=== PATIENT | male | born 1935 | race Caucasian/White ===

== ENCOUNTER 2019-12-30 12:03 | Inpatient (IN) | payer MEDICARE, OTHER, MEDICAID ==
[2019-12-30] MEDS ORDERED: Calcium Carbonate 500 MG Tab.Chew PO PRN (15:40)
[2019-12-30] MEDS ORDERED: Acetaminophen 325 MG Tab PO PRN (15:40)
[2019-12-30] MEDS ORDERED: Bisacodyl 5 MG Tab PO PRN (15:40)
[2019-12-30] MEDS ORDERED: traMADol 50 MG Tab PO PRN (15:40)
[2019-12-30] MEDS: Sodium Chloride 0.9% 1,000 ML IV SCH (16:14)
[2019-12-30] MEDS: traMADol 50 MG Tab PO SCH ×2 (16:15→20:06)
[2019-12-30] MEDS: Acetaminophen 650 MG Tab.ER PO SCH ×2 (16:15→20:07)
[2019-12-30] MEDS: Potassium Chloride 20 MEQ Tab.ER PO SCH (20:09)
[2019-12-30] MEDS: Bumetanide 1 MG Tab PO SCH (20:09)
[2019-12-30] MEDS: Gabapentin 100 MG Cap PO SCH (20:10)
[2019-12-30] MEDS: Allopurinol 100 MG Tab PO SCH (20:10)
[2019-12-30] MEDS: Sodium Chloride 1 GM Tab PO SCH (20:10)
[2019-12-30] MEDS: Atenolol 25 MG Tab PO SCH (20:11)
[2019-12-30] MEDS: Formoterol/Mometasone 100-5 MCG 8.8 GM Inhaler IH SCH (20:45)
[2019-12-30] MEDS: Carboxymethylcellulose Sodium 0.5% Ophth Soln 15 ML Bottle EYEBOTH SCH (20:47)
[2019-12-31] MEDS: Acetaminophen 650 MG Tab.ER PO SCH ×4 (07:03→20:28)
[2019-12-31] MEDS: Levothyroxine 25 MCG Tab PO SCH (07:13)
[2019-12-31] MEDS: Gabapentin 100 MG Cap PO SCH ×3 (07:48→20:27)
[2019-12-31] MEDS: traMADol 50 MG Tab PO SCH ×4 (07:48→19:07)
[2019-12-31 08:17] LABS: ANION GAP 11.3 mmol/L (5-15)
[2019-12-31] MEDS: Sodium Chloride 0.9% 1,000 ML IV SCH (08:37)
[2019-12-31] MEDS: Formoterol/Mometasone 100-5 MCG 8.8 GM Inhaler IH SCH ×2 (08:39→20:31)
[2019-12-31] MEDS: Sodium Chloride 1 GM Tab PO SCH ×2 (08:45→20:27)
[2019-12-31] MEDS: Potassium Chloride 20 MEQ Tab.ER PO SCH ×2 (08:45→20:28)
[2019-12-31] MEDS: Finasteride 5 MG Tab PO SCH (08:45)
[2019-12-31] MEDS: Multivitamins with Minerals/Iron/Folic Acid/Lycopene Tab PO SCH (08:45)
[2019-12-31] MEDS: Bumetanide 1 MG Tab PO SCH ×2 (08:45→20:26)
[2019-12-31] MEDS: Doxazosin 2 MG Tab PO SCH (08:45)
[2019-12-31] MEDS: Furosemide 40 MG Tab PO SCH (08:46)
[2019-12-31] MEDS: Folic Acid 1 MG Tab PO SCH (08:46)
[2019-12-31] MEDS: Carboxymethylcellulose Sodium 0.5% Ophth Soln 15 ML Bottle EYEBOTH SCH ×2 (08:47→20:32)
[2019-12-31] MEDS: Spironolactone 25 MG Tab PO SCH (08:49)
[2019-12-31] MEDS ORDERED: Non-Formulary Medication 1 Each (Cyanocobalamin (Vitamin B12) [Vitamin B12] 100 MCG) PO SCH (09:00)
--- NOTE | 2019-12-31 10:00 | PCM.PN ---
- General Info Date of Service: 12/31/19 Functional Status: Reports: Pain Controlled, Tolerating Diet, Urinating. Denies: Ambulating, Incentive Spirometry - Review of Systems General: Reports: No Symptoms HEENT: Reports: No Symptoms Pulmonary: Reports: No Symptoms Cardiovascular: Reports: No Symptoms Gastrointestinal: Denies: Abdominal Pain, Constipation, Diarrhea, Nausea Genitourinary: Reports: No Symptoms Musculoskeletal: Reports: Leg Pain, Joint Swelling Skin: Reports: Rash, Other (Improving in erythremia right lower extremity) Neurological: Reports: Difficulty Walking - Patient Data Vitals - Most Recent: Last Vital Signs Temp 99.9 F 12/31/19 07:00 Pulse 62 12/31/19 07:00 Resp 20 12/31/19 07:00 BP 115/49 L 12/31/19 08:45 Pulse Ox 96 12/31/19 07:00 Weight - Most Recent: 212 lb 14.4 oz I&O - Last 24 Hours: Intake & Output 12/30/19 12/31/19 12/31/19 22:59 06:59 14:59 Intake Total 300 300 Balance 300 300 Lab Results Last 24 Hours: Laboratory Results - last 24 hr 12/30/19 12/31/19 12/31/19 Range/Units 15:50 07:18 07:18 WBC 7.84 (5.00-10.00) 10^3/uL RBC 3.75 L (4.50-6.00) 10^6/uL Hgb 12.1 L (13.0-17.0) g/dL Hct 36.7 L (40.0-52.0) % MCV 97.9 H D (82.0-92.0) fL MCH 32.3 H (27.0-31.0) pg MCHC 33.0 (32.0-36.0) g/dL RDW 13.7 (11.5-14.5) % Plt Count 70 L (150-400) 10^3/uL MPV 10.0 (7.4-10.4) fL Immature Gran % (Auto) 1.7 (0.0-5.0) % Neut % (Auto) 88.1 H (50.0-70.0) % Lymph % (Auto) 5.9 L (20.0-40.0) % Craig % (Auto) 4.1 (2.0-8.0) % Eos % (Auto) 0.1 L (1.0-3.0) % Baso % (Auto) 0.1 (0.0-1.0) % Neut # (Auto) 6.91 (2.50-7.00) 10^3/uL Lymph # (Auto) 0.46 L (1.00-4.00) 10^3/uL Craig # (Auto) 0.32 (0.10-0.80) 10^3/uL Eos # (Auto) 0.01 L (0.10-0.30) 10^3/uL Baso # (Auto) 0.01 (0.00-0.10) 10^3/uL Immature Gran # (Auto) 0.13 (0.00-0.50) 10^3/uL Sodium 131 L (136-145) mmol/L Potassium 4.3 (3.3-5.3) mmol/L Chloride 95 L (98-115) mmol/L Carbon Dioxide 29.0 (21.0-32.0) mmol/L Anion Gap 11.3 (5-15) mmol/L BUN 39 H (6-25) mg/dL Creatinine 1.31 H (0.51-1.17) mg/dL Est Cr Clr Drug Dosing 39.25 mL/min Estimated GFR (MDRD) 52 mL/min Glucose 112 H (75 - 99) mg/dL Lactic Acid 1.6 (0.4-2.0) mmol/L Calcium 7.7 L (8.7-10.3) mg/dL Med Orders - Current: Current Medications Acetaminophen (Tylenol) 650 mg PO Q6HR PRN PRN Reason: Pain Acetaminophen (Tylenol Arthritis Pain) 650 mg PO QID@05,11,16,20 [facility] Last Admin: 12/31/19 07:03 Dose: 650 mg Documented by: Allopurinol (Zyloprim) 200 mg PO BEDTIME [facility] Last Admin: 12/30/19 20:10 Dose: 200 mg Documented by: Artificial Tears (Refresh Tears 0.5%) 0 ml EYEBOTH BID [facility] Last Admin: 12/31/19 08:47 Dose: 2 drop Documented by: Atenolol (Tenormin) 25 mg PO BEDTIME [facility] Last Admin: 12/30/19 20:11 Dose: 25 mg Documented by: Bisacodyl (Dulcolax) 5 mg PO DAILY PRN PRN Reason: Constipation Bumetanide (Bumex) 0.5 mg PO BID [facility] Last Admin: 12/31/19 08:45 Dose: 0.5 mg Documented by: Calcium Carbonate/Glycine (Tums) 500 mg PO QID PRN PRN Reason: Indigestion Calcium Carbonate/Glycine (Tums) 500 mg PO SA [facility] Doxazosin Mesylate (Cardura) 2 mg PO DAILY [facility] Last Admin: 12/31/19 08:45 Dose: 2 mg Documented by: Finasteride (Proscar) 5 mg PO DAILY [facility] Last Admin: 12/31/19 08:45 Dose: 5 mg Documented by: Folic Acid (Folic Acid) 1 mg PO DAILY [facility] Last Admin: 12/31/19 08:46 Dose: 1 mg Documented by: Furosemide (Lasix) 40 mg PO DAILY [facility] Last Admin: 12/31/19 08:46 Dose: 40 mg Documented by: Gabapentin (Neurontin) 100 mg PO BID@0800,1200 [facility] Last Admin: 12/31/19 07:48 Dose: 100 mg Documented by: Gabapentin (Neurontin) 200 mg PO BEDTIME [facility] Last Admin: 12/30/19 20:10 Dose: 200 mg Documented by: Vancomycin HCl 1.5 gm/ Sodium (Chloride) 250 mls @ 100 mls/hr IV Q24H [facility] Sodium Chloride (Normal Saline) 1,000 mls @ 75 mls/hr IV ASDIRECTED [facility] Last Admin: 12/31/19 08:37 Dose: 75 mls/hr Documented by: Levothyroxine Sodium (Levothyroxine) 25 mcg PO ACBREAKFAST [facility] Last Admin: 12/31/19 07:13 Dose: 25 mcg Documented by: Mometasone Furoate/Formoterol Fumar (Dulera 100-5 Mcg) 2 puff IH BID [facility] Last Admin: 12/31/19 08:39 Dose: 2 puff Documented by: Multivitamins/Minerals (Centrum) 1 tab PO DAILY [facility] Last Admin: 12/31/19 08:45 Dose: 1 tab Documented by: Potassium Chloride (Klor-Con M20) 20 meq PO BID [facility] Last Admin: 12/31/19 08:45 Dose: 20 meq Documented by: Senna/Docusate Sodium (Senna Plus) 1 tab PO DAILY [facility] Last Admin: 12/31/19 08:46 Dose: 1 tab Documented by: Sodium Chloride (Saline Flush) 10 ml FLUSH Q8HR PRN PRN Reason: keep vein open Sodium Chloride (Sodium Chloride) 1 gm PO BID [facility] Last Admin: 12/31/19 08:45 Dose: 1 gm Documented by: Spironolactone (Aldactone) 25 mg PO DAILY [facility] Last Admin: 12/31/19 08:49 Dose: 25 mg Documented by: Tramadol HCl (Ultram) 50 mg PO BEDTIME PRN PRN Reason: Pain Tramadol HCl (Ultram) 50 mg PO QID@08,11,16,19 [facility] Last Admin: 12/31/19 07:48 Dose: 50 mg Documented by: Vancomycin HCl (Pharmacy To Dose - Vancomycin) 1 dose .XX ASDIRECTED [facility] Discontinued Medications Vancomycin HCl 2 gm/ Sodium (Chloride) 250 mls @ 100 mls/hr IV ONETIME ONE Stop: 12/30/19 17:04 Last Admin: 12/30/19 16:14 Dose: 100 mls/hr Documented by: Non-Formulary Medication (Cyanocobalamin (Vitamin B12) [Vitamin B12]) 100 mcg PO DAILY [facility] - Exam Quality Assessment: No: Supplemental Oxygen General: Alert, Oriented, Cooperative Neck: Supple Lungs: Clear to Auscultation, Normal Respiratory Effort Cardiovascular: Regular Rate, Regular Rhythm GI/Abdominal Exam: Other. No: Distended (Male) Exam: Deferred Back Exam: No: CVA Tenderness (L), CVA Tenderness (R) Extremities: No Pedal Edema, Redness. No: Increased Warmth Sepsis Event Note - Evaluation Sepsis Screening Result: No Definite Risk - Focused Exam Vital Signs: Vital Signs Temp Pulse Resp BP BP Pulse Ox 12/31/19 08:45 115/49 L 12/31/19 07:00 99.9 F 62 20 115/49 L 96 12/31/19 03:00 97 F 74 20 121/61 95 12/30/19 23:00 98.1 F 84 20 113/60 93 L - Problem List Review Problem List Initiated/Reviewed/Updated: Yes - Plan Plan:: History Summary 84yr male was admitted into inpatient status due to right lower extremity cellulitis with foot ulcers. She is a resident of a local LTC and was evaluated and admitted by Lisette Dumont NP due to is strongly suspected cellulitis of his right lower extremity. Patient stated he sustained a fall recently when his feet came out from underneath him subsequently noticed his right foot becoming more painful red edematous however he had no fever. Pertinent clinical findings: Right lower extremity erythematous, warm to touch and painful with blister. WBC 9.3 with 91% neutrophilia SBP and HR 112. No Confusion. Exam: Right foot ~ 2 x 1.5 cm ulceration present with fat layer exposed to right lateral/plantar forefoot. Large fluid filled blister at base of 5th toe. Open sanguineous draining blister to great toe. Stasis dermatitis to LLE. Right foot: Approximate 2 x 1.5 cm ulceration present with fat layer exposed to right lateral/plantar forefoot. Large fluid filled blister at base of 5th toe. Open sanguineous draining blister to great toe. Stasis dermatitis to LLE. Primary hospital problems --Cellulitis, RLL, improving in demarcation and depth --Diabetic ulcer of right midfoot --Renal sufficiency, acute, BUN/creat ratio 30:1, suspect comined prerenal vancomycin induced, continue isotonic fluids --Tachycardia, resolved, Chronic stable conditions: -Stasis dermatitis to LLE. no open wounds -T2DM, diet controlled, -Chronic diastolic heart failure: On lasix 40 mg daily, bumex 0.5 mg BID, spironolactone 25 mg daily. -Venous insufficiency. -Hyponatremia: On sodium chloride 1 gm BID. -Thrombocytopenia. Disposition/overall plan --Patient meets ongoing inpatient qualification criteria due to the need for IV vancomycin close renal monitoring. --Change activity to [facility]--keep RLE elevated--toes to nose. --Discontinue telemetry --Continue isotonic fluids --Will require surgical sharps debridement after initial infection is resolved, place on scheduled
[2019-12-31] MEDS ORDERED: Furosemide 40 MG/4 ML VIAL IVPUSH ONE (18:30)
[2019-12-31] MEDS: Sodium Chloride 0.9% 10 ML Syringe FLUSH PRN (19:12)
[2019-12-31] MEDS: Allopurinol 100 MG Tab PO SCH (20:26)
[2019-12-31] MEDS: Atenolol 25 MG Tab PO SCH (20:30)
[2020-01-01] MEDS: Acetaminophen 650 MG Tab.ER PO SCH ×4 (06:00→22:24)
[2020-01-01] MEDS: Levothyroxine 25 MCG Tab PO SCH ×2 (06:00→07:18)
[2020-01-01] MEDS: Gabapentin 100 MG Cap PO SCH ×3 (08:03→22:24)
[2020-01-01] MEDS: Finasteride 5 MG Tab PO SCH (08:04)
[2020-01-01] MEDS: Furosemide 40 MG Tab PO SCH (08:04)
[2020-01-01] MEDS: Potassium Chloride 20 MEQ Tab.ER PO SCH ×2 (08:04→22:24)
[2020-01-01] MEDS: Bumetanide 1 MG Tab PO SCH ×2 (08:04→22:26)
[2020-01-01] MEDS: traMADol 50 MG Tab PO SCH ×4 (08:04→22:29)
[2020-01-01] MEDS: Spironolactone 25 MG Tab PO SCH (08:05)
[2020-01-01] MEDS: Multivitamins with Minerals/Iron/Folic Acid/Lycopene Tab PO SCH (08:05)
[2020-01-01] MEDS: Sodium Chloride 1 GM Tab PO SCH ×2 (08:05→22:24)
[2020-01-01] MEDS: Folic Acid 1 MG Tab PO SCH (08:05)
[2020-01-01] MEDS: Doxazosin 2 MG Tab PO SCH (08:10)
[2020-01-01] MEDS: Formoterol/Mometasone 100-5 MCG 8.8 GM Inhaler IH SCH ×2 (09:03→22:31)
[2020-01-01 09:09] LABS: HEMOGLOBIN A1C 6.1 % (4.3-5.7)
--- NOTE | 2020-01-01 10:17 | PCM.PN ---
- General Info Date of Service: 01/01/20 Functional Status: Reports: Pain Controlled, Tolerating Diet - Review of Systems General: Denies: Fever, Weakness HEENT: Reports: No Symptoms Pulmonary: Reports: No Symptoms Cardiovascular: Reports: No Symptoms Gastrointestinal: Reports: No Symptoms Skin: Reports: Bruising, Rash Neurological: Reports: Difficulty Walking. Denies: Confusion Psychiatric: Denies: Confusion - Patient Data Vitals - Most Recent: Last Vital Signs Temp 96.8 F L 01/01/20 07:00 Pulse 76 01/01/20 09:03 Resp 24 H 01/01/20 07:00 BP 116/55 L 01/01/20 08:10 Pulse Ox 96 01/01/20 09:18 Weight - Most Recent: 212 lb 14.4 oz I&O - Last 24 Hours: Intake & Output 12/31/19 01/01/20 01/01/20 22:59 06:59 14:59 Intake Total 779 410 Balance 779 410 Lab Results Last 24 Hours: Laboratory Results - last 24 hr 01/01/20 Range/Units 07:23 Hemoglobin A1c 6.1 H (4.3-5.7) % Hemant Results Last 24 Hours: Microbiology 12/30/19 13:45 Gram Stain - Final Wound - Foot, Right 12/30/19 13:40 Gram Stain - Final Wound - Toe, Big (Great), Right 12/30/19 15:50 Aerobic Blood Culture - Preliminary Blood - Venous - Lab Draw NO GROWTH AFTER 1 DAY Anaerobic Blood Culture - Final 12/30/19 15:40 Aerobic Blood Culture - Preliminary Blood - Venous NO GROWTH AFTER 1 DAY Anaerobic Blood Culture - Final Med Orders - Current: Current Medications Acetaminophen (Tylenol) 650 mg PO Q6HR PRN PRN Reason: Pain Acetaminophen (Tylenol Arthritis Pain) 650 mg PO QID@05,11,16,20 [facility] Last Admin: 01/01/20 06:00 Dose: 650 mg Documented by: Allopurinol (Zyloprim) 200 mg PO BEDTIME [facility] Last Admin: 12/31/19 20:26 Dose: 200 mg Documented by: Artificial Tears (Refresh Tears 0.5%) 0 ml EYEBOTH BID [facility] Last Admin: 12/31/19 20:32 Dose: 2 drop Documented by: Atenolol (Tenormin) 25 mg PO BEDTIME [facility] Last Admin: 12/31/19 20:30 Dose: 25 mg Documented by: Bisacodyl (Dulcolax) 5 mg PO DAILY PRN PRN Reason: Constipation Last Admin: 01/01/20 08:04 Dose: 5 mg Documented by: Bumetanide (Bumex) 0.5 mg PO BID [facility] Last Admin: 01/01/20 08:04 Dose: 0.5 mg Documented by: Calcium Carbonate/Glycine (Tums) 500 mg PO QID PRN PRN Reason: Indigestion Calcium Carbonate/Glycine (Tums) 500 mg PO SA [facility] Doxazosin Mesylate (Cardura) 2 mg PO DAILY [facility] Last Admin: 01/01/20 08:10 Dose: 2 mg Documented by: Finasteride (Proscar) 5 mg PO DAILY [facility] Last Admin: 01/01/20 08:04 Dose: 5 mg Documented by: Folic Acid (Folic Acid) 1 mg PO DAILY [facility] Last Admin: 01/01/20 08:05 Dose: 1 mg Documented by: Furosemide (Lasix) 40 mg PO DAILY [facility] Last Admin: 01/01/20 08:04 Dose: 40 mg Documented by: Gabapentin (Neurontin) 100 mg PO BID@0800,1200 [facility] Last Admin: 01/01/20 08:03 Dose: 100 mg Documented by: Gabapentin (Neurontin) 200 mg PO BEDTIME [facility] Last Admin: 12/31/19 20:27 Dose: 200 mg Documented by: Vancomycin HCl 1.5 gm/ Sodium (Chloride) 250 mls @ 100 mls/hr IV Q24H [facility] Last Admin: 12/31/19 15:37 Dose: 100 mls/hr Documented by: Levothyroxine Sodium (Levothyroxine) 25 mcg PO ACBREAKFAST [facility] Last Admin: 01/01/20 07:18 Dose: Not Given Documented by: Mometasone Furoate/Formoterol Fumar (Dulera 100-5 Mcg) 2 puff IH BID [facility] Last Admin: 01/01/20 09:03 Dose: 2 puff Documented by: Multivitamins/Minerals (Centrum) 1 tab PO DAILY [facility] Last Admin: 01/01/20 08:05 Dose: 1 tab Documented by: Potassium Chloride (Klor-Con M20) 20 meq PO BID [facility] Last Admin: 01/01/20 08:04 Dose: 20 meq Documented by: Senna/Docusate Sodium (Senna Plus) 1 tab PO DAILY [facility] Last Admin: 01/01/20 08:04 Dose: 1 tab Documented by: Sodium Chloride (Saline Flush) 10 ml FLUSH Q8HR PRN PRN Reason: keep vein open Last Admin: 12/31/19 19:12 Dose: 10 ml Documented by: Sodium Chloride (Sodium Chloride) 1 gm PO BID [facility] Last Admin: 01/01/20 08:05 Dose: 1 gm Documented by: Spironolactone (Aldactone) 25 mg PO DAILY [facility] Last Admin: 01/01/20 08:05 Dose: 25 mg Documented by: Tramadol HCl (Ultram) 50 mg PO BEDTIME PRN PRN Reason: Pain Tramadol HCl (Ultram) 50 mg PO QID@08,,16,19 [facility] Last Admin: 01/01/20 08:04 Dose: 50 mg Documented by: Vancomycin HCl (Pharmacy To Dose - Vancomycin) 1 dose .XX ASDIRECTED [facility] Discontinued Medications Furosemide (Lasix) 20 mg IVPUSH NOW ONE Stop: 12/31/19 18:31 Last Admin: 12/31/19 19:08 Dose: 20 mg Documented by: Vancomycin HCl 2 gm/ Sodium (Chloride) 250 mls @ 100 mls/hr IV ONETIME ONE Stop: 12/30/19 17:04 Last Admin: 12/30/19 16:14 Dose: 100 mls/hr Documented by: Sodium Chloride (Normal Saline) 1,000 mls @ 75 mls/hr IV ASDIRECTED [facility] Last Admin: 12/31/19 08:37 Dose: 75 mls/hr Documented by: Non-Formulary Medication (Cyanocobalamin (Vitamin B12) [Vitamin B12]) 100 mcg PO DAILY [facility] - Exam General: Alert, Oriented, Cooperative Neck: Supple Lungs: Clear to Auscultation, Normal Respiratory Effort Cardiovascular: Regular Rate, Regular Rhythm GI/Abdominal Exam: Soft. No: Distended (Male) Exam: Deferred Back Exam: No: CVA Tenderness (L), CVA Tenderness (R) Extremities: Redness (Right foot: Approximate 2 x 1.5 cm ulceration present with fat layer exposed to right lateral/plantar forefoot. Large fluid filled blister at base of 5th toe. Open sanguineous draining blister to great toe. ). No: Leg Pain Skin: Other (Right foot: Approximate 2 x 1.5 cm ulceration present with fat layer exposed to right lateral/plantar forefoot. Large fluid filled blister at base of 5th toe. Open sanguineous draining blister to great toe. ) Wound/Incisions: Other (Right foot: Approximate 2 x 1.5 cm ulceration present with fat layer exposed to right lateral/plantar forefoot. Large fluid filled blister at base of 5th toe. Open sanguineous draining blister to great toe. ) Psy/Mental Status: Alert, Normal Affect, Normal Mood Sepsis Event Note - Evaluation Sepsis Screening Result: No Definite Risk - Focused Exam Vital Signs: Vital Signs Temp Pulse Resp BP BP Pulse Ox Pulse Ox 01/01/20 09:18 96 01/01/20 09:03 76 01/01/20 08:10 116/55 L 01/01/20 07:00 96.8 F L 78 24 H 124/57 L 93 L 01/01/20 03:00 98.9 F 85 20 105/57 L 92 L 12/31/19 22:45 98.7 F 87 20 125/66 92 L - Problem List Review Problem List Initiated/Reviewed/Updated: Yes - My Orders Last 24 Hours: My Active Orders 12/31/19 10:10 Bedrest Bathroom Privileges [RC] ASDIRECTED 01/01/20 07:23 BASIC METABOLIC PANEL,POC [POC] Routine - Plan Plan:: History Summary 84yr male was admitted into inpatient status due to right lower extremity cellulitis with foot ulcers. She is a resident of a local LTC and was evaluated and admitted by Lisette Dumont NP due to is strongly suspected cellulitis of his right lower extremity. Patient stated he sustained a fall recently when his feet came out from underneath him subsequently noticed his right foot becoming more painful red edematous however he had no fever. Pertinent clinical findings: Right lower extremity erythematous, warm to touch and painful with blister. WBC 9.3 with 91% neutrophilia SBP and HR 112. No Confusion. Exam: Right foot ~ 2 x 1.5 cm ulceration present with fat layer exposed to right lateral/plantar forefoot. Large fluid filled blister at base of 5th toe. Open sanguineous draining blister to great toe. Stasis dermatitis to LLE. Right foot: Approximate 2 x 1.5 cm ulceration present with fat layer exposed to right lateral/plantar forefoot. Large fluid filled blister at base of 5th toe. Open sanguineous draining blister to great toe. Stasis dermatitis to LLE. Hospital course to date; patient doing well with less edema, decrease in redness and decreasing warmth to his right lower extremity and foot, with drainage base of fifth toe. No fever, no pain, did sustain a fall while in the bathroom landed on buttocks no injury. Anaerobic blood culture positive for gram- positive cocci Primary hospital problems --Bacteremia, Anaerobic blood culture positive for gram-positive, Vancomycin --Cellulitis, RLL, improving in demarcation and depth --Diabetic ulcer of right midfoot --Renal sufficiency, acute, BUN/creat ratio 30:1, suspect combined prerenal vancomycin induced, --Tachycardia, resolved, Chronic stable conditions: -Stasis dermatitis to LLE. no open wounds -T2DM, diet controlled, -Chronic diastolic heart failure: On lasix 40 mg daily, bumex 0.5 mg BID, spironolactone 25 mg daily. -Venous insufficiency. -Hyponatremia: On sodium chloride 1 gm BID. -Thrombocytopenia. Disposition/overall plan --Patient meets ongoing inpatient qualification criteria due to the need for IV vancomycin close renal monitoring. --[facility]--keep RLE elevated--toes to nose --Will require surgical sharps debridement after initial infection is resolved, place on scheduled
[2020-01-01] MEDS: Carboxymethylcellulose Sodium 0.5% Ophth Soln 15 ML Bottle EYEBOTH SCH ×2 (11:44→22:31)
[2020-01-01] MEDS: Sodium Chloride 0.9% 10 ML Syringe FLUSH PRN (14:43)
[2020-01-01] MEDS: Atenolol 25 MG Tab PO SCH (22:24)
[2020-01-01] MEDS: Allopurinol 100 MG Tab PO SCH (22:26)
[2020-01-02] MEDS: Acetaminophen 650 MG Tab.ER PO SCH ×4 (05:51→19:01)
[2020-01-02] MEDS: Levothyroxine 25 MCG Tab PO SCH ×2 (05:52→07:46)
[2020-01-02] MEDS: Gabapentin 100 MG Cap PO SCH ×3 (07:51→20:20)
[2020-01-02] MEDS: traMADol 50 MG Tab PO SCH ×4 (07:55→19:02)
[2020-01-02] MEDS: Doxazosin 2 MG Tab PO SCH (08:25)
[2020-01-02] MEDS: Spironolactone 25 MG Tab PO SCH (08:31)
[2020-01-02] MEDS: Potassium Chloride 20 MEQ Tab.ER PO SCH ×2 (08:31→20:20)
[2020-01-02] MEDS: Sodium Chloride 1 GM Tab PO SCH ×2 (08:31→20:19)
[2020-01-02] MEDS: Multivitamins with Minerals/Iron/Folic Acid/Lycopene Tab PO SCH (08:31)
[2020-01-02] MEDS: Furosemide 40 MG Tab PO SCH (08:31)
[2020-01-02] MEDS: Finasteride 5 MG Tab PO SCH (08:31)
[2020-01-02] MEDS: Bumetanide 1 MG Tab PO SCH ×2 (08:31→20:20)
[2020-01-02] MEDS: Folic Acid 1 MG Tab PO SCH (08:31)
[2020-01-02] MEDS: Formoterol/Mometasone 100-5 MCG 8.8 GM Inhaler IH SCH ×2 (08:34→20:24)
[2020-01-02] MEDS: Carboxymethylcellulose Sodium 0.5% Ophth Soln 15 ML Bottle EYEBOTH SCH ×2 (08:34→20:23)
[2020-01-02 08:57] LABS: ANION GAP 14.9 mmol/L (5-15); CHLORIDE,CL 97 mmol/L (98-115); SODIUM,NA 135 mmol/L (136-145)
--- NOTE | 2020-01-02 11:31 | PCM.PN ---
- General Info Date of Service: 01/02/20 Functional Status: Reports: Pain Controlled, Tolerating Diet, Urinating. Denies: Ambulating, New Symptoms - Review of Systems General: Denies: Fever HEENT: Reports: No Symptoms Pulmonary: Reports: No Symptoms Cardiovascular: Reports: No Symptoms Gastrointestinal: Reports: No Symptoms Genitourinary: Denies: Dysuria - Patient Data Vitals - Most Recent: Last Vital Signs Temp 98.1 F 01/02/20 06:37 Pulse 68 01/02/20 06:37 Resp 20 01/02/20 06:37 BP 127/57 L 01/02/20 08:25 Pulse Ox 95 01/02/20 06:37 Weight - Most Recent: 212 lb 14.4 oz I&O - Last 24 Hours: Intake & Output 01/01/20 01/02/20 01/02/20 22:59 06:59 14:59 Intake Total 500 300 Balance 500 300 Lab Results Last 24 Hours: Laboratory Results - last 24 hr 01/02/20 01/02/20 Range/Units 07:56 07:56 WBC 6.42 (5.00-10.00) 10^3/uL RBC 3.69 L (4.50-6.00) 10^6/uL Hgb 11.8 L (13.0-17.0) g/dL Hct 35.8 L (40.0-52.0) % MCV 97.0 H (82.0-92.0) fL MCH 32.0 H (27.0-31.0) pg MCHC 33.0 (32.0-36.0) g/dL RDW 13.7 (11.5-14.5) % Plt Count 85 L (150-400) 10^3/uL MPV 10.5 H (7.4-10.4) fL Immature Gran % (Auto) 4.7 (0.0-5.0) % Neut % (Auto) 84.1 H (50.0-70.0) % Lymph % (Auto) 7.5 L (20.0-40.0) % [place] % (Auto) 3.0 (2.0-8.0) % Eos % (Auto) 0.5 L (1.0-3.0) % Baso % (Auto) 0.2 (0.0-1.0) % Neut # (Auto) 5.41 (2.50-7.00) 10^3/uL Lymph # (Auto) 0.48 L (1.00-4.00) 10^3/uL [place] # (Auto) 0.19 (0.10-0.80) 10^3/uL Eos # (Auto) 0.03 L (0.10-0.30) 10^3/uL Baso # (Auto) 0.01 (0.00-0.10) 10^3/uL Immature Gran # (Auto) 0.30 (0.00-0.50) 10^3/uL Sodium 135 L (136-145) mmol/L Potassium 3.9 (3.3-5.3) mmol/L Chloride 97 L (98-115) mmol/L Carbon Dioxide 27.0 (21.0-32.0) mmol/L Anion Gap 14.9 (5-15) mmol/L BUN 35 H (6-25) mg/dL Creatinine 0.98 (0.51-1.17) mg/dL Est Cr Clr Drug Dosing 52.46 mL/min Estimated GFR (MDRD) > 60 mL/min Glucose 126 H (75 - 99) mg/dL Calcium 7.6 L (8.7-10.3) mg/dL Hemant Results Last 24 Hours: Microbiology 12/30/19 15:50 Bacterial Identification - Preliminary Blood - Venous Staphylococcus Aureus 12/30/19 15:40 Bacterial Identification - Preliminary Blood - Venous - Lab Draw Staphylococcus Aureus 12/30/19 15:50 Aerobic Blood Culture - Preliminary Blood - Venous - Lab Draw NO GROWTH AFTER 2 DAYS Anaerobic Blood Culture - Final 12/30/19 15:40 Aerobic Blood Culture - Preliminary Blood - Venous NO GROWTH AFTER 2 DAYS Anaerobic Blood Culture - Final 12/30/19 13:45 Miscellaneous Reference Culture - Preliminary Wound - Foot, Right Staphylococcus Aureus Gram Stain - Final 12/30/19 13:40 Miscellaneous Reference Culture - Preliminary Wound - Toe, Big (Great), Right Staphylococcus Aureus Gram Stain - Final Med Orders - Current: Current Medications Acetaminophen (Tylenol) 650 mg PO Q6HR PRN PRN Reason: Pain Acetaminophen (Tylenol Arthritis Pain) 650 mg PO QID@05,11,16,20 [facility] Last Admin: 01/02/20 11:10 Dose: 650 mg Documented by: Allopurinol (Zyloprim) 200 mg PO BEDTIME [facility] Last Admin: 01/01/20 22:26 Dose: 200 mg Documented by: Artificial Tears (Refresh Tears 0.5%) 0 ml EYEBOTH BID [facility] Last Admin: 01/02/20 08:34 Dose: 2 drop Documented by: Atenolol (Tenormin) 25 mg PO BEDTIME [facility] Last Admin: 01/01/20 22:24 Dose: 25 mg Documented by: Bisacodyl (Dulcolax) 5 mg PO DAILY PRN PRN Reason: Constipation Last Admin: 01/01/20 08:04 Dose: 5 mg Documented by: Bumetanide (Bumex) 0.5 mg PO BID [facility] Last Admin: 01/02/20 08:31 Dose: 0.5 mg Documented by: Calcium Carbonate/Glycine (Tums) 500 mg PO QID PRN PRN Reason: Indigestion Calcium Carbonate/Glycine (Tums) 500 mg PO SA [facility] Doxazosin Mesylate (Cardura) 2 mg PO DAILY [facility] Last Admin: 01/02/20 08:25 Dose: 2 mg Documented by: Finasteride (Proscar) 5 mg PO DAILY [facility] Last Admin: 01/02/20 08:31 Dose: 5 mg Documented by: Folic Acid (Folic Acid) 1 mg PO DAILY [facility] Last Admin: 01/02/20 08:31 Dose: 1 mg Documented by: Furosemide (Lasix) 40 mg PO DAILY [facility] Last Admin: 01/02/20 08:31 Dose: 40 mg Documented by: Gabapentin (Neurontin) 100 mg PO BID@0800,1200 [facility] Last Admin: 01/02/20 11:11 Dose: 100 mg Documented by: Gabapentin (Neurontin) 200 mg PO BEDTIME [facility] Last Admin: 01/01/20 22:24 Dose: 200 mg Documented by: Vancomycin HCl 1.5 gm/ Sodium (Chloride) 250 mls @ 100 mls/hr IV Q24H [facility] Last Admin: 01/01/20 14:43 Dose: 100 mls/hr Documented by: Levothyroxine Sodium (Levothyroxine) 25 mcg PO ACBREAKFAST [facility] Last Admin: 01/02/20 07:46 Dose: Not Given Documented by: Mometasone Furoate/Formoterol Fumar (Dulera 100-5 Mcg) 2 puff IH BID [facility] Last Admin: 01/02/20 08:34 Dose: 2 puff Documented by: Multivitamins/Minerals (Centrum) 1 tab PO DAILY [facility] Last Admin: 01/02/20 08:31 Dose: 1 tab Documented by: Potassium Chloride (Klor-Con M20) 20 meq PO BID [facility] Last Admin: 01/02/20 08:31 Dose: 20 meq Documented by: Senna/Docusate Sodium (Senna Plus) 1 tab PO DAILY [facility] Last Admin: 01/02/20 08:31 Dose: 1 tab Documented by: Sodium Chloride (Saline Flush) 10 ml FLUSH Q8HR PRN PRN Reason: keep vein open Last Admin: 01/01/20 14:43 Dose: 10 ml Documented by: Sodium Chloride (Sodium Chloride) 1 gm PO BID [facility] Last Admin: 01/02/20 08:31 Dose: 1 gm Documented by: Spironolactone (Aldactone) 25 mg PO DAILY [facility] Last Admin: 01/02/20 08:31 Dose: 25 mg Documented by: Tramadol HCl (Ultram) 50 mg PO BEDTIME PRN PRN Reason: Pain Tramadol HCl (Ultram) 50 mg PO QID@08,11,16,19 [facility] Last Admin: 01/02/20 11:11 Dose: 50 mg Documented by: Vancomycin HCl (Pharmacy To Dose - Vancomycin) 1 dose .XX ASDIRECTED [facility] Discontinued Medications Furosemide (Lasix) 20 mg IVPUSH NOW ONE Stop: 12/31/19 18:31 Last Admin: 12/31/19 19:08 Dose: 20 mg Documented by: Vancomycin HCl 2 gm/ Sodium (Chloride) 250 mls @ 100 mls/hr IV ONETIME ONE Stop: 12/30/19 17:04 Last Admin: 12/30/19 16:14 Dose: 100 mls/hr Documented by: Sodium Chloride (Normal Saline) 1,000 mls @ 75 mls/hr IV ASDIRECTED [facility] Last Admin: 12/31/19 08:37 Dose: 75 mls/hr Documented by: Non-Formulary Medication (Cyanocobalamin (Vitamin B12) [Vitamin B12]) 100 mcg PO DAILY [facility] - Exam General: Alert, Oriented, Cooperative Lungs: Clear to Auscultation, Normal Respiratory Effort Cardiovascular: Regular Rate, Regular Rhythm GI/Abdominal Exam: Normal Bowel Sounds, Soft Back Exam: No: CVA Tenderness (L), CVA Tenderness (R) Skin: Other (Right foot: Approximate 2 x 1.5 cm ulceration present with fat layer exposed to right lateral/plantar forefoot. Large fluid filled blister at base of 5th toe. Open sanguineous draining blister to great toe. ) Psy/Mental Status: Alert, Normal Affect, Normal Mood Sepsis Event Note - Evaluation Sepsis Screening Result: No Definite Risk - Focused Exam Vital Signs: Vital Signs Temp Pulse Resp BP BP Pulse Ox 01/02/20 08:25 127/57 L 01/02/20 06:37 98.1 F 68 20 102/52 L 95 01/02/20 03:00 98.0 F 80 20 118/64 95 - Problem List Review Problem List Initiated/Reviewed/Updated: Yes - Plan Plan:: History Summary 84yr male was admitted into inpatient status due to right lower extremity cellulitis with foot ulcers. She is a resident of a local LTC and was evaluated and admitted by Lisette Dumont NP due to is strongly suspected cellulitis of his right lower extremity. Patient stated he sustained a fall recently when his feet came out from underneath him subsequently noticed his right foot becoming more painful red edematous however he had no fever. Pertinent clinical findings: Right lower extremity erythematous, warm to touch and painful with blister. WBC 9.3 with 91% neutrophilia SBP and HR 112. No Confusion. Exam: Right foot ~ 2 x 1.5 cm ulceration present with fat layer exposed to right lateral/plantar forefoot. Large fluid filled blister at base of 5th toe. Open sanguineous draining blister to great toe. Stasis dermatitis to LLE. Right foot: Approximate 2 x 1.5 cm ulceration present with fat layer exposed to right lateral/plantar forefoot. Large fluid filled blister at base of 5th toe. Open sanguineous draining blister to great toe. Stasis dermatitis to LLE. Hospital course 01/01/2020 patient doing well with less edema, decrease in redness and decreasing warmth to his right lower extremity and foot, with drainage base of fifth toe. No fever, no pain, did sustain a fall while in the bathroom landed on buttocks no injury. Anaerobic blood culture positive for gram-positive cocci 01/02/2020; blood cultures returned MRSA bacteremia without any systemic sequela, fever chills, map adequate. Patient alert, going dressing change and vancomycin. Indices very much improved. Need repeat blood cultures to assess for surveillance Primary hospital problems --Bacteremia, MRSA Anaerobic blood culture positive for gram-positive, Vancomycin, will repeated. --Cellulitis, RLL, improving in demarcation and depth --Diabetic ulcer of right midfoot --Renal sufficiency, much imroved. --Tachycardia, resolved, Chronic stable conditions: -Stasis dermatitis to LLE. no open wounds -T2DM, diet controlled, -Chronic diastolic heart failure: On lasix 40 mg daily, bumex 0.5 mg BID, spironolactone 25 mg daily. -Venous insufficiency. -Hyponatremia: On sodium chloride 1 gm BID. -Thrombocytopenia Disposition/overall plan --Patient meets ongoing inpatient qualification criteria due to the need for IV vancomycin close renal monitoring and repeat of BC --Repeat BC x2 to assess bacteremia clearance --BRBRP, RLE elevated--toes to nose --Will require surgical sharps debridement especially if BC returns with ongoing MRSA bacteremia
[2020-01-02] MEDS: Allopurinol 100 MG Tab PO SCH (20:20)
[2020-01-02] MEDS: Atenolol 25 MG Tab PO SCH (20:22)
[2020-01-03] MEDS: Levothyroxine 25 MCG Tab PO SCH ×2 (05:06→06:42)
[2020-01-03] MEDS: Acetaminophen 650 MG Tab.ER PO SCH ×4 (05:06→19:33)
[2020-01-03] MEDS: traMADol 50 MG Tab PO SCH ×4 (07:53→19:31)
[2020-01-03] MEDS: Gabapentin 100 MG Cap PO SCH ×3 (07:53→20:21)
[2020-01-03] MEDS: Sodium Chloride 0.9% 10 ML Syringe FLUSH PRN ×2 (07:54→15:30)
[2020-01-03] MEDS: Sodium Chloride 1 GM Tab PO SCH ×2 (08:02→20:21)
[2020-01-03] MEDS: Carboxymethylcellulose Sodium 0.5% Ophth Soln 15 ML Bottle EYEBOTH SCH ×2 (08:02→20:22)
[2020-01-03] MEDS: Potassium Chloride 20 MEQ Tab.ER PO SCH ×2 (08:02→20:20)
[2020-01-03] MEDS: Folic Acid 1 MG Tab PO SCH (08:03)
[2020-01-03] MEDS: Spironolactone 25 MG Tab PO SCH (08:03)
[2020-01-03] MEDS: Bumetanide 1 MG Tab PO SCH ×2 (08:03→20:20)
[2020-01-03] MEDS: Finasteride 5 MG Tab PO SCH (08:03)
[2020-01-03] MEDS: Multivitamins with Minerals/Iron/Folic Acid/Lycopene Tab PO SCH (08:03)
[2020-01-03] MEDS: Furosemide 40 MG Tab PO SCH (08:03)
[2020-01-03] MEDS: Formoterol/Mometasone 100-5 MCG 8.8 GM Inhaler IH SCH ×2 (08:05→20:22)
[2020-01-03] MEDS: Doxazosin 2 MG Tab PO SCH (08:06)
--- NOTE | 2020-01-03 11:23 | PCM.PN ---
- General Info Date of Service: 01/03/20 Functional Status: Reports: Pain Controlled, Tolerating Diet, Urinating. Denies: Ambulating, New Symptoms - Review of Systems General: Denies: Fever, Weakness HEENT: Reports: No Symptoms Pulmonary: Reports: No Symptoms Cardiovascular: Reports: Edema Gastrointestinal: Reports: No Symptoms Genitourinary: Reports: No Symptoms Musculoskeletal: Reports: No Symptoms Skin: Reports: Other (Right foot ulceration and heel wound) Neurological: Reports: Pre-Existing Deficit, Difficulty Walking. Denies: Confusion Psychiatric: Reports: No Symptoms - Patient Data Vitals - Most Recent: Last Vital Signs Temp 99.1 F 01/03/20 06:26 Pulse 74 01/03/20 06:26 Resp 20 01/03/20 06:26 BP 129/70 01/03/20 08:06 Pulse Ox 93 L 01/03/20 06:26 Weight - Most Recent: 212 lb 14.4 oz I&O - Last 24 Hours: Intake & Output 01/02/20 01/03/20 01/03/20 22:59 06:59 14:59 Intake Total 540 300 Balance 540 300 Lab Results Last 24 Hours: Laboratory Results - last 24 hr 01/02/20 Range/Units 15:15 Vancomycin Trough 14.3 (10-20) ug/mL Hemant Results Last 24 Hours: Microbiology 12/30/19 15:50 Bacterial Identification - Final Blood - Venous Staphylococcus Aureus 12/30/19 15:50 Aerobic Blood Culture - Preliminary Blood - Venous - Lab Draw NO GROWTH AFTER 3 DAYS Anaerobic Blood Culture - Final 12/30/19 15:40 Aerobic Blood Culture - Preliminary Blood - Venous NO GROWTH AFTER 3 DAYS Anaerobic Blood Culture - Final 12/30/19 15:50 Bacterial Identification - Preliminary Blood - Venous - Lab Draw Staphylococcus Aureus 12/30/19 13:40 Miscellaneous Reference Culture - Preliminary Wound - Toe, Big (Great), Right Staphylococcus Aureus Gram Stain - Final 12/30/19 13:45 Anaerobic Culture - Preliminary Wound - Foot, Right 12/30/19 13:45 Miscellaneous Reference Culture - Preliminary Wound - Foot, Right Staphylococcus Aureus Beta Streptococcus Group B Gram Stain - Final 12/30/19 13:40 Anaerobic Culture - Preliminary Wound - Toe, Big (Great), Right 12/30/19 15:40 Bacterial Identification - Preliminary Blood - Venous - Lab Draw Staphylococcus Aureus Med Orders - Current: Current Medications Acetaminophen (Tylenol) 650 mg PO Q6HR PRN PRN Reason: Pain Acetaminophen (Tylenol Arthritis Pain) 650 mg PO QID@05,11,16,20 [facility] Last Admin: 01/03/20 05:06 Dose: 650 mg Documented by: Allopurinol (Zyloprim) 200 mg PO BEDTIME [facility] Last Admin: 01/02/20 20:20 Dose: 200 mg Documented by: Artificial Tears (Refresh Tears 0.5%) 0 ml EYEBOTH BID [facility] Last Admin: 01/03/20 08:02 Dose: 2 drop Documented by: Atenolol (Tenormin) 25 mg PO BEDTIME [facility] Last Admin: 01/02/20 20:22 Dose: 25 mg Documented by: Bisacodyl (Dulcolax) 5 mg PO DAILY PRN PRN Reason: Constipation Last Admin: 01/01/20 08:04 Dose: 5 mg Documented by: Bumetanide (Bumex) 0.5 mg PO BID [facility] Last Admin: 01/03/20 08:03 Dose: 0.5 mg Documented by: Calcium Carbonate/Glycine (Tums) 500 mg PO QID PRN PRN Reason: Indigestion Calcium Carbonate/Glycine (Tums) 500 mg PO [facility] Doxazosin Mesylate (Cardura) 2 mg PO DAILY [facility] Last Admin: 01/03/20 08:06 Dose: 2 mg Documented by: Finasteride (Proscar) 5 mg PO DAILY [facility] Last Admin: 01/03/20 08:03 Dose: 5 mg Documented by: Folic Acid (Folic Acid) 1 mg PO DAILY [facility] Last Admin: 01/03/20 08:03 Dose: 1 mg Documented by: Furosemide (Lasix) 40 mg PO DAILY [facility] Last Admin: 01/03/20 08:03 Dose: 40 mg Documented by: Gabapentin (Neurontin) 100 mg PO BID@0800,1200 [facility] Last Admin: 01/03/20 07:53 Dose: 100 mg Documented by: Gabapentin (Neurontin) 200 mg PO BEDTIME [facility] Last Admin: 01/02/20 20:20 Dose: 200 mg Documented by: Vancomycin HCl 1.75 gm/ Sodium (Chloride) 250 mls @ 85.714 mls/hr IV Q24H [facility] Last Admin: 01/02/20 16:27 Dose: 85.714 mls/hr Documented by: Levothyroxine Sodium (Levothyroxine) 25 mcg PO ACBREAKFAST [facility] Last Admin: 01/03/20 06:42 Dose: Not Given Documented by: Mometasone Furoate/Formoterol Fumar (Dulera 100-5 Mcg) 2 puff IH BID [facility] Last Admin: 01/03/20 08:05 Dose: 2 puff Documented by: Multivitamins/Minerals (Centrum) 1 tab PO DAILY [facility] Last Admin: 01/03/20 08:03 Dose: 1 tab Documented by: Potassium Chloride (Klor-Con M20) 20 meq PO BID [facility] Last Admin: 01/03/20 08:02 Dose: 20 meq Documented by: Senna/Docusate Sodium (Senna Plus) 1 tab PO DAILY [facility] Last Admin: 01/03/20 08:02 Dose: 1 tab Documented by: Sodium Chloride (Saline Flush) 10 ml FLUSH Q8HR PRN PRN Reason: keep vein open Last Admin: 01/03/20 07:54 Dose: 10 ml Documented by: Sodium Chloride (Sodium Chloride) 1 gm PO BID [facility] Last Admin: 01/03/20 08:02 Dose: 1 gm Documented by: Spironolactone (Aldactone) 25 mg PO DAILY [facility] Last Admin: 01/03/20 08:03 Dose: 25 mg Documented by: Tramadol HCl (Ultram) 50 mg PO BEDTIME PRN PRN Reason: Pain Tramadol HCl (Ultram) 50 mg PO QID@08,11,16,19 [facility] Last Admin: 01/03/20 07:53 Dose: 50 mg Documented by: Vancomycin HCl (Pharmacy To Dose - Vancomycin) 1 dose .XX ASDIRECTED [facility] Discontinued Medications Furosemide (Lasix) 20 mg IVPUSH NOW ONE Stop: 12/31/19 18:31 Last Admin: 12/31/19 19:08 Dose: 20 mg Documented by: Vancomycin HCl 2 gm/ Sodium (Chloride) 250 mls @ 100 mls/hr IV ONETIME ONE Stop: 12/30/19 17:04 Last Admin: 12/30/19 16:14 Dose: 100 mls/hr Documented by: Vancomycin HCl 1.5 gm/ Sodium (Chloride) 250 mls @ 100 mls/hr IV Q24H [facility] Last Admin: 01/02/20 16:29 Dose: Not Given Documented by: Sodium Chloride (Normal Saline) 1,000 mls @ 75 mls/hr IV ASDIRECTED [facility] Last Admin: 12/31/19 08:37 Dose: 75 mls/hr Documented by: Non-Formulary Medication (Cyanocobalamin (Vitamin B12) [Vitamin B12]) 100 mcg PO DAILY [facility] - Exam Quality Assessment: No: Supplemental Oxygen General: Alert, Oriented, Cooperative, No Acute Distress Lungs: Clear to Auscultation, Normal Respiratory Effort Cardiovascular: Regular Rate, Regular Rhythm GI/Abdominal Exam: Soft, No Distention Back Exam: No: CVA Tenderness (L), CVA Tenderness (R) Skin: Other (Exam: Right foot ~ 2 x 1.5 cm ulceration present with fat layer exposed to right lateral/plantar forefoot. Large fluid filled blister at base of 5th toe. Open sanguineous draining blister to great toe. Stasis dermatitis to LLE. ) Sepsis Event Note - Evaluation Sepsis Screening Result: No Definite Risk - Focused Exam Vital Signs: Vital Signs Temp Pulse Resp BP BP Pulse Ox 01/03/20 08:06 129/70 01/03/20 06:26 99.1 F 74 20 91/47 L 93 L 01/03/20 03:00 97.7 F 80 20 126/56 L 92 L - Problem List Review Problem List Initiated/Reviewed/Updated: Yes - My Orders Last 24 Hours: My Active Orders 01/02/20 11:32 Blood Culture x2 Reflex Set [OM.PC] Stat 01/02/20 12:45 CULTURE BLOOD [BC] Stat 01/02/20 13:40 CULTURE BLOOD [BC] Stat 01/02/20 15:53 Communication Order [RC] - Plan Plan:: History Summary 84yr male was admitted into inpatient status due to right lower extremity cellulitis with foot ulcers. She is a resident of a local LTC and was evaluated and admitted by Lisette Dumont NP due to is strongly suspected cellulitis of his right lower extremity. Patient stated he sustained a fall recently when his feet came out from underneath him subsequently noticed his right foot becoming more painful red edematous however he had no fever. Pertinent clinical findings: Right lower extremity erythematous, warm to touch and painful with blister. WBC 9.3 with 91% neutrophilia SBP and HR 112. No Confusion. Exam: Right foot ~ 2 x 1.5 cm ulceration present with fat layer exposed to right lateral/plantar forefoot. Large fluid filled blister at base of 5th toe. Open sanguineous draining blister to great toe. Stasis dermatitis to LLE. Right foot: Approximate 2 x 1.5 cm ulceration present with fat layer exposed to right lateral/plantar forefoot. Large fluid filled blister at base of 5th toe patient which has ruptured. Open sanguineous draining blister to great toe. Stasis dermatitis to LLE. Hospital course 01/01/2020 patient doing well with less edema, decrease in redness and decreasing warmth to his right lower extremity and foot, with drainage base of fifth toe. No fever, no pain, did sustain a fall while in the bathroom landed on buttocks no injury. Anaerobic blood culture positive for gram-positive cocci 01/02/2020; blood cultures returned MRSA bacteremia without any systemic sequela, fever chills, map adequate. Patient alert, going dressing change and vancomycin. Indices very much improved. Need repeat blood cultures to assess for surveillance 01/03/2020; patient's right lower extremity vastly now cool with wrinkling skin, erythremia receding from demarcated borders from admission, less redness throughout and depth. Vancomycin trough therapeutic Primary hospital problems --Bacteremia, MRSA Anaerobic blood culture positive for gram-positive, Vancomycin, Repeated BC pending --Cellulitis, RLL, improving in demarcation and depth --Diabetic ulcer of right midfoot --Renal sufficiency, much imroved. --Tachycardia, resolved, Chronic stable conditions: -Stasis dermatitis to LLE. no open wounds -T2DM, diet controlled, -Chronic diastolic heart failure: On lasix 40 mg daily, bumex 0.5 mg BID, spironolactone 25 mg daily. -Venous insufficiency. -Hyponatremia: On sodium chloride 1 gm BID. -Thrombocytopenia Disposition/overall plan --Patient meets ongoing inpatient qualification criteria due to the need for IV vancomycin close renal monitoring and PICC placement --PICC placement by Dr Gant this pm --Awaiting BC x2 to assess bacteremia clearance, if not cleared then consider Daptomycin and/or debridment soon --lab to call NPL for Vancomycin HEMANT levels --BRBRP, RLE elevated--toes to nose --LMWH for DVT prophylaxis --Will require surgical sharps debridement especially if BC returns with ongoing MRSA bacteremia --Going monitoring for systemic symptoms.
[2020-01-03] MEDS ORDERED: Enoxaparin 40 MG/0.4 ML Syringe SUBCUT SCH (11:30)
--- NOTE | 2020-01-03 17:45 | CR ---
[id number] RAD/RAD Chest PA or AP 1V EXAM: SINGLE VIEW CHEST. INDICATION: PICC LINE PLACEMENT COMPARISON: CORRELATION IS MADE WITH SEPTEMBER 27, 2015 FINDINGS: A PICC line is seen on the right The tip initially was in the region of the right atrium The lungs are clear The cardiac silhouette is prominent but stable Additional images were obtained The final image demonstrates the catheter tip in the region of the superior vena cava IMPRESSION: CATHETER TIP IN GOOD POSITION Renato Healy MD 01/03/20 1406 Thank you for allowing us to participate in the care of your patient.
[2020-01-03] MEDS ORDERED: Trolamine Salicylate/Aloe Vera 10% Crm 85 GM Tube TOP PRN (20:07)
[2020-01-03] MEDS: Allopurinol 100 MG Tab PO SCH (20:20)
[2020-01-03] MEDS: Atenolol 25 MG Tab PO SCH (20:21)
[2020-01-04] MEDS: Acetaminophen 650 MG Tab.ER PO SCH (05:25)
[2020-01-04] MEDS: Levothyroxine 25 MCG Tab PO SCH ×2 (06:01→06:30)
[2020-01-04 08:07] LABS: ANION GAP 12.7 mmol/L (5-15); CHLORIDE,CL 97 mmol/L (98-115); SODIUM,NA 134 mmol/L (136-145)
[2020-01-04] MEDS: Folic Acid 1 MG Tab PO SCH (08:35)
[2020-01-04] MEDS: Multivitamins with Minerals/Iron/Folic Acid/Lycopene Tab PO SCH (08:36)
[2020-01-04] MEDS: traMADol 50 MG Tab PO SCH (08:36)
[2020-01-04] MEDS: Gabapentin 100 MG Cap PO SCH (08:36)
[2020-01-04] MEDS: Finasteride 5 MG Tab PO SCH (08:36)
[2020-01-04] MEDS: Potassium Chloride 20 MEQ Tab.ER PO SCH (08:38)
[2020-01-04] MEDS: Bumetanide 1 MG Tab PO SCH (08:38)
[2020-01-04] MEDS: Doxazosin 2 MG Tab PO SCH (08:39)
[2020-01-04] MEDS: Carboxymethylcellulose Sodium 0.5% Ophth Soln 15 ML Bottle EYEBOTH SCH (08:40)
[2020-01-04] MEDS: Sodium Chloride 1 GM Tab PO SCH (08:40)
[2020-01-04] MEDS: Spironolactone 25 MG Tab PO SCH (08:40)
[2020-01-04] MEDS: Furosemide 40 MG Tab PO SCH (08:41)
[2020-01-04] MEDS: Formoterol/Mometasone 100-5 MCG 8.8 GM Inhaler IH SCH (08:41)
[2020-01-04 09:02] VITALS: BP 124/70; PULSE 78
[2020-01-04] MEDS ORDERED: Calcium Carbonate 500 MG Tab.Chew PO SCH (15:40)
--- NOTE | 2020-01-04 18:23 | DISCH ---
DISCHARGE DIAGNOSIS: 1. Bacteremia methicillin-resistant Staphylococcus aureus. 2. Cellulitis of the right lower extremity. 3. Diabetic ulcer of the right mid foot. 4. Renal insufficiency, improving. 5. Resolved tachycardia. 6. Stasis dermatitis to the left lower extremity. 7. Type 2 diabetes, controlled. 8. Chronic diastolic heart failure. 9. Venous insufficiency. 10.Hyponatremia. 11.Thrombocytopenia. BRIEF HISTORY/HOSPITAL SUMMARY: This is an 84-year-old male patient who was admitted to inpatient care due to right lower extremity cellulitis with foot ulcers. He is a resident of the long-term care setting in [place], [place]. Cellulitis is suspected to have developed from a previous fall as reported per the patient. Initially when he was admitted, the right foot had a 2 x 1.5 cm ulceration with fat layer exposure to the right lateral/plantar forefoot. Fluid- filled blister at the base of the 5th toe. Sanguineous drainage of the blister. Over the course of his hospitalization, blood cultures were obtained noting the bacteremia MRSA. The fluid-filled blister did rupture. His cellulitis did improve and at discharge. The lower extremity erythema had receded from the demarcated borders from admission. There is much less redness throughout and less depth. The lower extremity is warm and dry to touch with improvement in the cellulitis symptoms. COMPLICATIONS: As previously stated in the history summary, the patient was treated with IV vancomycin. CONSULTATIONS: Dr. Eze Mayorga was consulted on 01/02 and a PICC line was placed by the physician. PHYSICAL EXAM ON DISCHARGE: GENERAL: The patient is alert and oriented. He does respond to questions appropriately. HEENT: Head is normocephalic. Conjunctiva is clear. No nasal drainage. RESPIRATORY: Lungs sounds clear to auscultation in all bases. No respiratory distress. CARDIOVASCULAR: Heart rate and rhythm is regular S1, S2. ABDOMEN: Soft, nontender to palpation. Bowel sounds are present. SKIN: Right lower extremity/foot 2 x 1.5 cm ulceration with fat layer present. Fluid-filled blister with rupture at the base of the 5th toe. Lower extremity is warm, dry to the touch. Demarcation from borders on admission has significantly improved. SIGNIFICANT LABS XRAYS AND CONSULTATION FINDINGS: The patient did have blood cultures obtained initially on 12/29, which were indicative of the bacteremia MRSA. Followup blood cultures revealed no growth after two days. CONDITION TREATMENT AND FINAL DISPOSITION ON DISCHARGE AND PROGNOSIS: The patient is stable to transfer back to the long-term [facility] facility. He will continue with his post hospitalization long-term medications as stated. Vancomycin will be every 24 hours for the cellulitis. A trough will be obtained on 01/05, and vancomycin will be discontinued on 01/08. Facility will notify Devante Devi CNP of the trough results on Monday prior to the next dose of vancomycin. The patient will be followed up at the long-term [facility] facility for re-evaluation by his PCP. DISCHARGE MEDICATIONS: As per long-term care, Tylenol 650 q.6 hours p.r.n., Tylenol Arthritis q.i.d., allopurinol 200 mg at bedtime, Artificial Tears b.i.d., atenolol 25 at bedtime, Dulcolax 5 mg p.r.n., Bumex 0.5 b.i.d., Tums p.r.n., Cardura 2 mg daily, Proscar 5 mg daily, folic acid 1 mg daily, furosemide 40 mg daily, gabapentin 100 b.i.d. and 200 at bedtime. He will continue with vancomycin 1.75 g every 24 hours through 01/09/2020 with a vanco trough level on 01/05. Levothyroxine 25 mcg daily, Dulera two puffs b.i.d., multivitamin daily, KCl 20 mEq b.i.d., Senna Plus daily, Aldactone 25 mg daily, tramadol 50 at bedtime p.r.n. and also 50 q.i.d. Dressing change to the right foot ulcer will be completed daily and will be cleansed with mild soap and warm water followed by Telfa, 4x4s and a Kerlix. Measurements will be obtained twice a week. /[id number]/MODL MTDD
--- NOTE | 2020-01-06 11:29 | OR ---
DATE OF SURGERY: 01/03/2020 SURGEON: Eze Mayorga MD PREOPERATIVE DIAGNOSIS: The patient has methicillin-resistant Staphylococcus aureus infection of the right lower extremity. The patient is requiring antibiotics for extended length of time. Peripheral veins are poor. PROCEDURE: PICC line placement. INFORMED CONSENT: Was obtained from the patient regarding this procedure. All possible complications were thoroughly discussed. He wished to proceed. DESCRIPTION OF PROCEDURE: He was kept in the supine position with the head tilted down. The right upper extremity was thoroughly prepped. The Sherlock device was placed in the anterior chest. Ultrasound guidance was used, and the right brachial vein was cannulated at the upper arm and the catheter was introduced into the central venous circulation. We then used the Sherlock to make sure that the catheter was directed inferiorly. We also performed an x-ray and adjusted the position of the catheter at 42 cm from the site of insertion. The guidewire was then removed. Following this, the PICC line was anchored with 4-0 nylon sutures as well as the StatLock device. The entire procedure was carried out in an aseptic fashion. Good blood return was obtained from the two ports of the catheter. The patient tolerated the procedure well without any difficulty or complication. /[id number]/MODL
== END 2020-01-04 10:42 | DRG 603 ==
LOC: KA.MS 13:15
PROVIDERS: ADMIT Nurse Practitioner Family; ATTEND Family Medicine
PROC: 02HV33Z Insertion of Infusion Device into Superior Vena Cava, Percutaneous Approach (ICD-10-PCS; principal; 2020-01-03)
DX: L03.115 Cellulitis of right lower limb (principal); R78.81 Bacteremia; I50.32 Chronic diastolic (congestive) heart failure; E87.1 Hypo-osmolality and hyponatremia; E11.621 Type 2 diabetes mellitus with foot ulcer; I11.0 Hypertensive heart disease with heart failure; R00.0 Tachycardia, unspecified; D69.6 Thrombocytopenia, unspecified; I87.2 Venous insufficiency (chronic) (peripheral); N28.9 Disorder of kidney and ureter, unspecified; Z20.828 Contact with and (suspected) exposure to other viral communicable diseases; Z91.81 History of falling
CPT/HCPCS: 36415; 71045; 80047; 80048; 80202; 83036; 83605; 85025; 87040; 87070; 87075; 87076; 87077; 87147; 87186; 87205; 94640; A9270-GY; J1650; J1940; J3370; J7030; J7050; U0002

== ENCOUNTER 2020-06-05 14:31 | Emergency (ER) | payer MEDICARE, OTHER, MEDICAID ==
--- NOTE | 2020-06-05 14:34 | EDM.PDOC ---
ED HPI GENERAL MEDICAL PROBLEM - General Chief Complaint: ENT Problem Stated Complaint: NO SIGHT IN RT EYE Time Seen by Provider: 06/05/20 14:34 Source of Information: Reports: Patient - History of Present Illness INITIAL COMMENTS - FREE TEXT/NARRATIVE: Agapito, 85-year-old male, was sent to the emergency department today for loss of vision "blurriness" of his right eye for the past 3 to 4 days. He states he is able to sense light but everything is blurry. Denies any trauma, any burning or itching, denies pain. States his left eye is functioning fine and has no complaints. States there was nothing that led up to this or precipitated its issues. Has not been ill or noted any changes in his overall status. Onset Date: 06/02/20 Duration: Day(s): - Related Data Allergies Allergy/AdvReac Type Severity Reaction Status Date / Time levofloxacin [From Levaquin] Allergy Rash Verified 06/05/20 14:44 Home Meds: Home Meds Acetaminophen [Tylenol] 650 mg PO Q6HR PRN 06/13/13 [History] Cyanocobalamin (Vitamin B12) [Vitamin B12] 100 mcg PO DAILY 06/13/13 [History] Doxazosin [Cardura] 2 mg PO DAILY 06/13/13 [History] Finasteride 5 mg PO DAILY 06/13/13 [History] Fluticasone/Salmeterol [Advair 100-50] 1 puff INH BID 06/13/13 [History] Potassium Chloride [Klor-Con 10] 20 meq PO BID 06/13/13 [History] Pyridoxine HCl (Vitamin B6) [Vitamin B-6] 50 mg PO TID@0700,1200,1900 06/13/13 [History] Sodium Chloride 1 gm PO BID 06/13/13 [History] atenoloL [Tenormin] 25 mg PO BEDTIME 06/13/13 [History] Carboxymethylcellulose Sodium [Refresh Plus 0.5%] 2 drop EYEBOTH BID 01/17/14 [History] Multivitamin [Multi-Vitamin Daily] 1 tab PO DAILY 01/17/14 [History] Trolamine Salicylate/Aloe Vera [Aspercreme 10%] 1 applic TOP BID 01/17/14 [History] Bisacodyl [Dulcolax] 5 mg PO DAILY PRN 09/27/15 [History] Bumetanide [Bumex] 0.5 mg PO BID 09/27/15 [History] Furosemide [Lasix] 40 mg PO DAILY 09/27/15 [History] Sennosides/Docusate Sodium [Senna-S Tablet] 1 tab PO DAILY 09/27/15 [History] Spironolactone [Aldactone] 25 mg PO DAILY 09/27/15 [History] Acetaminophen [Tylenol Arthritis] 650 mg PO QID@05,11,16,20 12/30/19 [History] Allopurinol [Zyloprim] 200 mg PO BEDTIME 12/30/19 [History] Calcium Carbonate [Tums] 500 mg PO QID PRN 12/30/19 [History] Calcium Carbonate [Tums] 500 mg PO SA 12/30/19 [History] Chlorphenir/Phenyleph/Aspirin [[place] Plus Cold Eff] 2 tab PO BID PRN 12/30/19 [History] Folic Acid 1 mg PO DAILY 12/30/19 [History] Gabapentin [Neurontin] 100 mg PO BID@0800,1200 12/30/19 [History] Gabapentin [Neurontin] 200 mg PO BEDTIME 12/30/19 [History] Levothyroxine Sodium [Synthroid] 25 mcg PO ACBREAKFAST 12/30/19 [History] Triamcinolone Acetonide [Nasacort] 1 spray NASBOTH DAILY 12/30/19 [History] Trolamine Salicylate/Aloe Vera [Aspercreme 10%] 1 applic TOP SA 12/30/19 [History] traMADol HCl [Tramadol HCl] 50 mg PO BEDTIME PRN 12/30/19 [History] traMADol HCl [Tramadol HCl] 50 mg PO QID@08,11,16,19 12/30/19 [History] Trolamine Salicylate/Aloe Vera [Aspercreme 10%] 0 gm TOP BID PRN tube 01/04/20 [Rx] Past Medical History HEENT History: Reports: Impaired Vision Cardiovascular History: Reports: High Cholesterol, Hypertension Respiratory History: Reports: None Gastrointestinal History: Reports: GERD Genitourinary History: Reports: BPH Musculoskeletal History: Reports: Arthritis, Gout, Osteoarthritis Endocrine/Metabolic History: Reports: Diabetes, Type II, Hypothyroidism, Obesity/BMI 30+ Hematologic History: Reports: Anemia, Folic Acid, Idiopathic Thrombocytopenia Other Hematologic History: pancytopenia,leulocytopenia Dermatologic History: Reports: Cellulitis - Infectious Disease History Infectious Disease History: Reports: Chicken Pox, Measles, Mumps, Rubella - Past Surgical History Head Surgeries/Procedures: Reports: None HEENT Surgical History: Reports: Tonsillectomy Cardiovascular Surgical History: Reports: None Respiratory Surgical History: Reports: None GI Surgical History: Reports: Appendectomy, Cholecystectomy Endocrine Surgical History: Reports: None Musculoskeletal Surgical History: Reports: None Dermatological Surgical History: Reports: None Social & Family History - Family History Family Medical History: No Pertinent Family History - Caffeine Use Caffeine Use: Reports: Soda ED ROS GENERAL - Review of Systems Review Of Systems: Comprehensive ROS is negative, except as noted in HPI. ED EXAM, GENERAL - Physical Exam Exam: See Below Free Text/Narrative:: Alert, oriented, conversive with me denying any discomfort. No respiratory issues. HEENT shows no discharge nor deformity. He seemingly keeps his right eye somewhat closed and opens it spontaneously when asked. States it is constantly blurry for the past 3 to 4 days. Left eye shows reactivity with red reflex and vasculature visible nondilated. Right eye shows a "black hole" appearance with no vasculature, no red reflex, and limited pupil reactivity. He is able to note the ophthalmoscope light but states it is not as bright in his right eye as what is in the left. There is no icterus nor injection noted. He is able to speak in full sentences with no difficulty during examination when I explained to him that it is likely he has had a detachment perspective and the serious nature of this finding. I discussed with him that he would need to see specialty services to likely have a scan and a full visual work-up which she states "that is okay I can live with it the way it is. I explained to him that the likelihood of restoring his vision to that I goes down with the Times[place] since occurrence and that I would like to talk with Devante Devi provider who referred him to the emergency department. Agapito is in agreements with that phone call is placed to Devante waiting to verify h is legal status for decision-making. Course - Vital Signs Last Recorded V/S: Last Vital Signs Temp 97.7 F 06/05/20 14:38 Pulse 87 06/05/20 14:38 Resp 16 06/05/20 14:38 BP 128/65 06/05/20 14:38 Pulse Ox 96 06/05/20 14:38 Departure - Departure Time of Disposition: 15:39 Disposition: DC/Tfer to Other 70 Condition: Fair Clinical Impression: Acute loss of vision - Discharge Information *PRESCRIPTION DRUG MONITORING PROGRAM REVIEWED*: Not Applicable *COPY OF PRESCRIPTION DRUG MONITORING REPORT IN PATIENT EVANGELIST: Not Applicable Forms: ED Department Discharge Additional Instructions: Immediate transfer has been arranged to [address] [place] [address] Jhaveri. Needs to have immediate transport there so they are able to evaluate scan to determine the significance of this loss of vision as it is been significant time since onset. Family members and Mr. Resendez are notified and awaiting pickup at this time. Nothing to eat or drink Sepsis Event Note (ED) - Focused Exam Vital Signs: Vital Signs Temp Pulse Resp BP Pulse Ox 06/05/20 14:38 97.7 F 87 16 128/65 96 - Problem List & Annotations (1) Acute loss of vision SNOMED Code(s): 59050853 Code(s): H53.139 - SUDDEN VISUAL LOSS, UNSPECIFIED EYE Status: Acute Priority: High Annotation/Comment:: Agapito initially declines any evaluation of this, to which I states I will speak with this provider Devante Devi. It appears there is loss and nearly complete loss as he only sees blurriness unable to tell what he is looking at. He is able to see light when it is shined but states it is not significantly is bright to his right eye is when I examined his left. Qualifiers: Laterality: right Qualified Code(s): H53.131 - Sudden visual loss, right eye - Problem List Review Problem List Initiated/Reviewed/Updated: Yes - Assessment/Plan Plan: Immediate transfer has been arranged to [address] [place] [address] Jhaveri. Needs to have immediate transport there so they are able to evaluate scan to determine the significance of this loss of vision as it is been significant time since onset. Family members and Mr. Resendez are notified and awaiting pickup at this time. Nothing to eat or drink
[2020-06-05 14:39] VITALS: BP 128/65; PULSE 87
== END 2020-06-05 16:00 | disposition other institution (70) ==
LOC: KA.ED 14:31
DX: H54.7 Unspecified visual loss (principal); I10 Essential (primary) hypertension; E11.9 Type 2 diabetes mellitus without complications; E03.9 Hypothyroidism, unspecified; E66.9 Obesity, unspecified; Z68.30 Body mass index [BMI] 30.0-30.9, adult; Z88.1 Allergy status to other antibiotic agents; Z79.899 Other long term (current) drug therapy
CPT/HCPCS: 99284

== ENCOUNTER 2021-06-10 23:26 | Emergency (ER) | payer MEDICARE, OTHER, MEDICAID ==
[2021-06-10] MEDS ORDERED: Sodium Chloride 0.9% 10 ML Syringe FLUSH PRN (23:41)
[2021-06-11 00:15] LABS: ANION GAP 12.9 mmol/L (5-15); CHLORIDE,CL 101 mmol/L (98-107); SODIUM,NA 131 mmol/L (136-145)
[2021-06-11 03:34] VITALS: BP 82/48; PULSE 79
== END 2021-06-11 02:25 ==
LOC: KA.ED 23:26
DX: N17.9 Acute kidney failure, unspecified (principal); I13.0 Hypertensive heart and chronic kidney disease with heart failure and stage 1 through stage 4 chronic kidney disease, or unspecified chronic kidney disease; N18.30 Chronic kidney disease, stage 3 unspecified; I50.9 Heart failure, unspecified; D63.1 Anemia in chronic kidney disease; K92.1 Melena; R77.8 Other specified abnormalities of plasma proteins; E87.5 Hyperkalemia; K21.9 Gastro-esophageal reflux disease without esophagitis; E78.00 Pure hypercholesterolemia, unspecified; E66.9 Obesity, unspecified; M10.9 Gout, unspecified; M19.90 Unspecified osteoarthritis, unspecified site; Z88.1 Allergy status to other antibiotic agents; Z68.30 Body mass index [BMI] 30.0-30.9, adult; Z79.899 Other long term (current) drug therapy; Z20.822 Contact with and (suspected) exposure to COVID-19
CPT/HCPCS: 36415; 71045; 80053; 82270; 83605; 83880; 84484; 85025; 93010; 99284; 99285-25; U0002